=== PATIENT | male | born 2005 | race African-American/Black ===

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

== ENCOUNTER 2023-12-28 13:01 | Emergency (ER) | payer OTHER, SELFPAY ==
--- NOTE | ~2023-12-28 | XR_ITS ---
EXAMINATION: XR shoulder LT min 2V DATE: 12/28/2023 14:16 INDICATION: Posttraumatic left shoulder pain following seizure TECHNIQUE: AP internally and externally rotated and transscapular Y views of the left shoulder were o btained. COMPARISON: None FINDINGS: There appears to be 5 mm distraction of an avulsion fracture of the lesser tuberosity. No other fract ures identified. Alignment is otherwise normal visualized portions of the lungs are clear. Soft tissu es are unremarkable. IMPRESSION: 5 mm distraction of an avulsion fracture of the left lesser tuberosity. Reviewed, dictated and finalized at location A.
--- NOTE | ~2023-12-28 | XR_ITS ---
XR shoulder RT min 2V 12/28/2023 14:16 INDICATION: Right shoulder pain after trauma. Seizure. PROCEDURE: 3 views right shoulder COMPARISON: No prior studies for comparison. FINDINGS: Fracture, dislocation or subluxation is not identified. The soft tissues appear within norm al limits. No foreign bodies are identified. IMPRESSION: 1: NO ACUTE BONE OR JOINT ABNORMALITY IDENTIFIED. Reviewed, dictated and finalized at location B.
--- NOTE | ~2023-12-28 | CT_ITS ---
EXAMINATION: CT shoulder LT wo con, CT shoulder RT wo con DATE: 12/28/2023 15:13 INDICATION: Traumatic bilateral shoulder pain post seizure TECHNIQUE: 1. High resolution computed tomography (CT) of the left shoulder was performed without intravenous co ntrast. Additional sagittal and coronal reconstructions were performed. Automated exposure control an d iterative reconstruction technique were employed. The dose-length product was 457.99 mGy-cm. 2. High resolution computed tomography (CT) of the right shoulder was performed without intravenous c ontrast. Additional sagittal and coronal reconstructions were performed. Automated exposure control a nd iterative reconstruction technique were employed. The dose-length product 412.32 mGy-cm. COMPARISON: Radiographs dated 12/28/2023 FINDINGS: There is slight posterior subluxation of both the left and right glenohumeral joints. There is osseou s deficiency but with corticated margins along the posterior aspect of both the left and right glenoi d consistent with chronic bilateral reverse Bankart fractures. Small ossific fragments along the post erior neck of the left and right glenoid likely represent the residual chronic nonunited fracture fra gments with differential including heterotopic ossification related to associated soft tissue injury. The contour of the bilateral humeral heads consistent with reverse Hill-Sachs fracture troughs. Both the left and right these appear smoothly corticated without a discrete acute appearing fracture line . Constellation of findings is consistent with sequela of chronic bilateral shoulder dislocations. Ex clusively on the left as a chronic nonunited avulsion fracture comprising a significant portion of th e lesser tuberosity footplate of the left subscapularis tendon. No definitively acute appearing fract ures identified. Bilateral acromioclavicular joints are normal. There are small bilateral glenohumera l joint effusions. Visualized portion of the bilateral upper lungs are unremarkable. No pathologicall y enlarged lymphadenopathy in either axilla with the visualized portions of the neck and chest. IMPRESSION: 1. 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 Finding s consistent with chronic bilateral posterior shoulder dislocations. Could not exclude recurrent acut e dislocations with subsequent re-locations but no acute appearing osseous abnormalities appreciated. 2. Likely secondary bilateral glenohumeral instability with mild posterior subluxation of both peyton l heads relative to the respective glenoids. 3. Small bilateral glenohumeral joint effusions. Reviewed, dictated and finalized at location A. IMPRESSION: 1. 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 Findings consistent with chronic bilateral posterior shoulder dislocations. Could not exclude recurrent acute dislocation s with subsequent re-locations but no acute appearing osseous abnormalities tyler reciated. 2. Likely secondary bilateral glenohumeral instability with mild posterior subl uxation of both humeral heads relative to the respective glenoids. 3. Small bilateral glenohumeral joint effusions.
[2023-12-28 13:13] VITALS: BP 134/64; PULSE 90; RESP 20; TEMP 36.6; O2SAT 100
--- NOTE | 2023-12-28 13:23 | ED.SEIZURE ---
HPI - Seizure General Chief Complaint: Seizure Stated Complaint: seizures Time Seen by Provider: 12/28/23 13:22 Source: patient and family Mode of arrival: ambulatory Limitations: no limitations History of Present Illness HPI Narrative: 18 YEARS OLD MALE CAME TO THE EMERGENCY ROOM AFTER HAVING SEIZURE AT HOME. HE DENIES BITING HIS TONGUE, COMPLAINING OF SHOULDER PAIN BILATERALLY MORE ON THE RIGHT SIDE. HIS MOM IS TELLING ME THAT 20 HALF SEIZURE HE 10 C SHOULDERS AND SOMETIMES CAN CAUSE DISLOCATION. PATIENT HAD DIAGNOSIS OF SEIZURE SINCE HE WAS 14 YEARS OLD, DOES NOT TAKE ANY MEDICINE FOR THE LAST 2-3 YEARS, BECAUSE HE DOES NOT LIKE THE WAY HE FEELS, DID NOT FOLLOW UP WITH HIS NEUROLOGIST OVER 3 YEARS AGO. HE DENIES ANY FEVER, CHILLS, NAUSEA VOMITING. Seizure History: Yes (febrile seizure ) Related Data Home Medications Medication Instructions Recorded Confirmed diazepam 12.5 mg-15 mg-17.5 mg-20 RECTAL 05/26/21 05/26/21 mg rectal kit zonisamide 100 mg capsule PO 05/26/21 Allergies Allergy/AdvReac Type Severity Reaction Status Date / Time No Known Allergies Allergy Verified 05/26/21 22:19 Review of Systems Review of Systems: All systems reviewed & are unremarkable except as noted in HPI and below PMFSH Past Medical History Medical History Febrile seizure Surgical History Surgical History No significant past surgical history Social History Social History Smoking status: Never smoker Alcohol intake: current Alcohol use details: occasionally Substance use type: marijuana Gender identity (if verbalized by the patient): Male Exam Narrative: GENERAL APPEARANCE: WELL-DEVELOPED, WELL-NOURISHED SKIN: NORMAL COLOR HEAD: NORMOCEPHALIC, NONTRAUMATIC EYES: CLEAR CONJUNCTIVA ENT: OROPHARYNX NORMAL, EARS NORMAL, NOSE NORMAL NECK: SUPPLE, NONTENDER CHEST AND RESPIRATORY: AIRWAY PATENT, NO RESPIRATORY DISTRESS, NO ACCESSORY MUSCLE USE HEART: REGULAR RATE/RHYTHM ABDOMEN: SOFT, NONTENDER, NO ORGANOMEGALY, QUIET BOWEL SOUNDS VASCULAR: NORMAL PERIPHERAL PULSES, NORMAL CAPILLARY REFILL. MUSCULOSKELETAL: DIFFUSE TENDERNESS RIGHT SHOULDER WITH SLIGHT LIMITED RANGE OF MOTION, NO DEFORMITY, SLIGHT DIFFUSE TENDERNESS OF THE LEFT 1 NEUROLOGIC: ALERT AND ORIENTED ?3, [employer] IS NORMAL TESTED, NO GROSS MOTOR DEFICIT Course Reevaluation(s) Reevaluation #1: IMPROVING Date: 12/28/23 Time: 15:42 Vital Signs Vital signs: Vital Signs Temperature 36.6 C 12/28/23 13:13 Pulse Rate 90 12/28/23 13:13 Respiratory Rate 20 12/28/23 13:13 Blood Pressure 134/64 12/28/23 13:13 Pulse Oximetry 100 12/28/23 13:13 Oxygen Delivery Room Air 12/28/23 13:13 Temperature 36.6 C 12/28/23 13:13 Pulse Rate 79 12/28/23 15:27 Respiratory Rate 19 12/28/23 15:27 Blood Pressure 119/64 12/28/23 15:27 Pulse Oximetry 100 12/28/23 15:27 Oxygen Delivery Room Air 12/28/23 13:52 MDM - Seizure MDM Narrative Medical decision making narrative: PATIENT PRESENTS WITH ANOTHER EPISODE OF SEIZURE, REPORT LAST SEIZURE WAS FEW MONTHS AGO, DOES NOT KNOW THE NAME OF THE MEDS HE IS TAKING THE PAST NEITHER HIS MOM. PATIENT WAS RELUCTANT TO TAKE THE IV KEPPRA IN THE EMERGENCY ROOM. BLOOD WORKUP TODAY SHOWED NO SIGNIFICANT ABNORMALITIES. PATIENT RECEIVED 1 G OF KEPPRA IV PRIOR TO DISCHARGE, DISCHARGED ON KEPPRA 500 B.I.D. AND TO FOLLOW-UP WITH NEUROLOGIST WITHIN 5 DAYS. Differential Diagnosis Differential diagnosis: Likely other ( ABOVE) Lab Data Attestation:
[2023-12-28 13:40] VITALS: O2SAT 100
[2023-12-28 13:54] VITALS: BP 120/66; PULSE 86; RESP 17; O2SAT 100
[2023-12-28 14:56] LABS: Basophils Absolute Auto 0.1 K/mm3 (0.0-0.1); Basophils Percent Auto 0.3 % (0.2-1.2); Eosinophils Percent Auto 0.2 % (0-4.4); Hematocrit 45.8 % (42.0-52.0); Hemoglobin 14.9 g/dL (14.0-18.0); Immature Granulocyte Absolute 0.09 K/mm3 (0.00-0.031); Immature Granulocyte Percent A 0.5 % (0-0.5); Lymphocytes Absolute Auto 1.21 K/mm3 (0.9-3.2); Lymphocytes Percent Auto 6.5 % (18.3-44.2); Mean Corpuscular HGB Conc 32.5 g/dl (32-36); Mean Corpuscular Hemoglobin 29.3 pg (26-34); Mean Platelet Volume 10.9 fl (7.4-10.4); Monocytes Absolute Auto 1.1 K/mm3 (0.1-0.6); Monocytes Percent Auto 6.1 % (2.6-8.5); Neutrophils Absolute Auto 16.1 K/mm3 (1.3-6.7); Neutrophils Percent Auto 86.4 % (45.5-73.1); Platelet Count Result 260 k/mm3 (150-375); Red Blood Count 5.09 M/mm3 (4.6-6.20); Red Cell Distribution Width 12.9 % (11.5-14.5); White Blood Count 18.6 K/mm3 (4.5-10.0)
[2023-12-28 14:59] LABS: Appearance Urine Cloudy (Clear); Bacteria Urine None Seen /hpf; Bilirubin Urine Negative (Negative); Blood Urine Trace (Negative); Color Urine Yellow (Yellow); Glucose Urine UA Negative (Negative); Ketones Urine Trace mg/dL (Negative); Leukocyte Esterase Ur 2+ LEU/UL (Negative); Nitrate Urine Negative (Negative); Non Pathogenic Casts 0-2; Protein Urine Trace mg/dL (Negative); RBC Urine 0-2 /hpf (0-2); Specific Grav Ur 1.015 (1.001-1.035); Squamous Epithelial Cell Urine Occasional /hpf (Few); Urobilinogen Urine 0.2 mg/dL (<2.0); WBC Urine 51-100 /hpf (0-3); pH Urine 5.5 (5.0-9.0)
[2023-12-28 15:06] LABS: Add Urine Microscopic? YES
[2023-12-28 15:12] LABS: Alanine Aminotransferase 22 U/L (6-50); Albumin Level 4.8 g/dL (3.5-5.1); Alkaline Phosphatase 80 U/L (38-126); Anion Gap 9 mmol/L (4-12); Aspartate Amino Transferase 35 U/L (17-59); Bilirubin,Total 0.5 mg/dL (0.2-1.3); Blood Urea Nitrogen 13 mg/dL (9-20); Calcium 9.1 mg/dL (8.4-10.2); Carbon Dioxide 22 mmol/L (22-30); Chloride 108 mmol/L (98-107); Estimated CRCL calculation 114 ml/min; Estimated Glomerular Filt Rate > 60; Glucose 112 mg/dL (65-110); Potassium 4.4 mmol/L (3.4-5.0); Sodium 139 mmol/L (137-145)
[2023-12-28 15:27] VITALS: BP 119/64; PULSE 79; RESP 19; O2SAT 100
[2023-12-28] MEDS: levETIRAcetam 1000MG/NACL100ML 1,000 MG/100 ML BAG 400 MG IVPB (15:28)
[2023-12-28 16:00] VITALS: BP 119/64; PULSE 77; RESP 21; TEMP 36.8; O2SAT 99
== END 2023-12-28 16:01 | disposition home or self-care (01) ==
PROVIDERS: Emergency Provider Emergency Medicine; Referring Provider Emergency Medicine
DX: R56.9 Unspecified convulsions (principal); T42.6X6A Underdosing of other antiepileptic and sedative-hypnotic drugs, initial encounter; Z91.128 Patient's intentional underdosing of medication regimen for other reason; R93.6 Abnormal findings on diagnostic imaging of limbs
CPT/HCPCS: 36415; 73030; 73200; 80053; 81001; 85025; 87086; 96365; 99284; J1953